=== PATIENT | female | born 1965 | race African-American/Black ===

== ENCOUNTER 2018-08-14 18:31 | Emergency (ER) | payer MEDICARE, MEDICAID ==
[2018-08-14] MEDS ORDERED: ASPIRIN 81 MG TABLET, CHEWABLE PO ONE (18:59)
--- NOTE | 2018-08-14 19:01 | ER Document Report ---
ED Medical Screen (RME) - General Chief Complaint: Chest Pain > 30 Stated Complaint: CHEST PAIN/EG PAIN/SHORTNESS OF BREATH Time Seen by Provider: 08/14/18 18:59 Notes: 52 years old female presents today with chest pain on and off for the last few days, left calf pain, difficulty in breathing on and off. 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 No previous history of any cardiac disease hypertension or diabetes. On examination reproducible chest wall tenderness noted. She insisted on ruling out any possibility of DVT. TRAVEL OUTSIDE OF THE [place] IN LAST 30 DAYS: No - Related Data Allergies/Adverse Reactions: codeine Allergy (Verified 08/14/18 18:36) erythromycin base Allergy (Verified 08/14/18 18:36) Sulfa (Sulfonamide Antibiotics) Allergy (Verified 08/14/18 18:36) Physical Exam - Vital signs Vitals: Temp Pulse Resp BP Pulse Ox 98.1 F 63 18 154/82 H 97 08/14/18 18:45 08/14/18 18:45 08/14/18 18:45 08/14/18 18:45 08/14/18 18:45 Course - Vital Signs Vital signs: Temp Pulse Resp BP Pulse Ox 98.1 F 63 18 154/82 H 97 08/14/18 18:45 08/14/18 18:45 08/14/18 18:45 08/14/18 18:45 08/14/18 18:45
[2018-08-14 19:29] LABS: ABSOLUTE BASOPHILS # (AUTO) 0.1 10^3/uL (0.0-0.2); ABSOLUTE EOSINOPHILS # (AUTO) 0.1 10^3/uL (0.0-0.6); ABSOLUTE LYMPHOCYTES (AUTO) 2.6 10^3/uL (0.5-4.7); ABSOLUTE MONOCYTES (AUTO) 0.5 10^3/uL (0.1-1.4); ABSOLUTE NEUT (AUTO) 3.7 10^3/uL (1.7-8.2); BASOPHILS % (AUTO) 0.9 % (0-2); EOSINOPHILS % (AUTO) 1.5 % (0-6); HEMATOCRIT 40.6 % (36.0-47.0); HEMOGLOBIN 13.4 g/dL (12.0-15.5); LYMPHOCYTES % (AUTO) 37.4 % (13-45); MEAN CORPUSCULAR HEMOGLOBIN 29.6 pg (27.0-33.4); MEAN CORPUSCULAR HGB CONC 33.1 g/dL (32.0-36.0); MEAN CORPUSCULAR VOLUME 89 fl (80-97); MONOCYTES % (AUTO) 6.9 % (3-13); PLATELET COUNT 240 10^3/uL (150-450); RED BLOOD COUNT 4.54 10^6/uL (3.72-5.28); RED CELL DISTRIBUTION WIDTH 14.1 % (11.5-14.0); SEGMENTED NEUTROPHILS % (AUTO) 53.3 % (42-78); TOTAL CELLS COUNTED % (AUTO) 100 %
--- NOTE | 2018-08-14 19:32 | EKG REPORT ---
SEVERITY:- ABNORMAL ECG - SINUS RHYTHM LATERAL INFARCT, OLD ABNRM R PROG, CONSIDER ASMI OR LEAD PLACEMENT : Confirmed by: Rick Acosta MD 14-Aug-2018 19:30:53
[2018-08-14 19:49] LABS: ALANINE AMINOTRANSFERASE 23 U/L (9-52); ALKALINE PHOSPHATASE 73 U/L (38-126); ANION GAP 9 (5-19); ASPARTATE AMINO TRANSFERASE 26 U/L (14-36); BILIRUBIN,DIRECT 0.1 mg/dL (0.0-0.4); BILIRUBIN,TOTAL 0.4 mg/dL (0.2-1.3); BLOOD UREA NITROGEN 13 mg/dL (7-20); CALCIUM 9.8 mg/dL (8.4-10.2); CARBON DIOXIDE 26 mmol/L (22-30); CHLORIDE 105 mmol/L (98-107); CREATINE KINASE 138 U/L (30-135); GLUCOSE 80 mg/dL (75-110); POTASSIUM 4.5 mmol/L (3.6-5.0); SODIUM 139.8 mmol/L (137-145); TOTAL PROTEIN 7.7 g/dL (6.3-8.2)
[2018-08-14 20:00] LABS: CREATINE KINASE MB 0.75 ng/mL (<4.55)
[2018-08-14 20:01] LABS: TROPONIN I < 0.012 ng/mL
--- NOTE | 2018-08-14 20:34 | RADIOLOGY REPORT (SQ) ---
EXAM DESCRIPTION: VENOUS UNILATERAL LOWER COMPLETED DATE/TIME: 08/14/2018 8:26 pm REASON FOR STUDY: Calf pain rule out DVT COMPARISON: None. TECHNIQUE: Dynamic and static garay scale and color images acquired of the left leg venous system. Se lected spectral images acquired with additional compression and augmentation maneuvers. The contralat eral common femoral vein and saphenofemoral junction were also imaged. Images stored on PACS. LIMITATIONS: None. FINDINGS: COMMON FEMORAL: Normal phasicity, compression and augmentation. No visualized echogenic ma terial on garay scale. No defects on color images. FEMORAL: Normal compression and augmentation. No visualized echogenic material on garay scale. No defe cts on color images. POPLITEAL: Normal compression, augmentation. No visualized echogenic material on garay scale. No defec ts on color images. CALF VESSELS: Normal compression, augmentation. No visualized echogenic material on garay scale. No de fects on color images. GSV and SSV: Normal compression, augmentation. No visualized echogenic material on garay scale. No def ects on color images. ANY DEEP VENOUS INSUFFICIENCY: Not evaluated. ANY EVIDENCE OF POPLITEAL CYST: No. OTHER: No other significant finding. CONTRALATERAL COMMON FEMORAL VEIN AND SAPHENOFEMORAL JUNCTION: Normal phasicity, compression and augmentation. No visualized echogenic material on garay scale. No de fects on color images. IMPRESSION: NO EVIDENCE DVT OR SVT IN THE LEFT LEG. TECHNICAL DOCUMENTATION: JOB ID: [id number] [employer]- All Rights Reserved Reading location - IP/workstation name: [email or web address]
--- NOTE | 2018-08-14 20:35 | ER Document Report ---
ED General - General Chief Complaint: Chest Pain > 30 Stated Complaint: CHEST PAIN/EG PAIN/SHORTNESS OF BREATH Time Seen by Provider: 08/14/18 18:59 Mode of Arrival: Ambulatory Information source: Patient Notes: This is a 52-year-old female with a history of asthma, fibromyalgia, seasonal allergies and chronic neck and back pain. Patient presents to the emergency room with chest wall pain, left lower extremity pain for the past few days. Patient states she feels like she is had sharp pain which is worse with movement. She also states that she gets short of breath. She denies any family history for blood clots. Her mother of congestive heart failure at the age of 55. Her father is alive and healthy. She has 3 brothers and 2 sisters all who are fine. Her medicines are albuterol, Zyrtec and Zantac. TRAVEL OUTSIDE OF THE [place] IN LAST 30 DAYS: No - HPI Onset: Yesterday Onset/Duration: Gradual Quality of pain: Sharp Severity: Moderate Pain Level: 3 Associated symptoms: Chest pain, Shortness of breath. denies: Nonproductive cough, Productive cough, Fever, Nausea Exacerbated by: Movement Relieved by: Remaining still Similar symptoms previously: Yes Recently seen / treated by doctor: Yes - Related Data Allergies/Adverse Reactions: codeine Allergy (Verified 08/14/18 18:36) erythromycin base Allergy (Verified 08/14/18 18:36) Sulfa (Sulfonamide Antibiotics) Allergy (Verified 08/14/18 18:36) Past Medical History - General Information source: Patient - Social History Smoking Status: Unknown if Ever Smoked Cigarette use (# per day): No Chew tobacco use (# tins/day): No Frequency of alcohol use: None Drug Abuse: None Lives with: Family Family History: None Patient has suicidal ideation: No Patient has homicidal ideation: No - Past Medical History Cardiac Medical History: Denies: Hx Coronary Artery Disease, Hx Hypertension Pulmonary Medical History: Reports: Hx Asthma EENT Medical History: Reports: None Neurological Medical History: Reports: Other - Fibromyalgia Endocrine Medical History: Reports: None Renal/ Medical History: Reports: None. Denies: Hx Peritoneal Dialysis Malignancy Medical History: Reports: None GI Medical History: Reports: Hx Gastroesophageal Reflux Disease Musculoskeletal Medical History: Reports Hx Arthritis, Reports Hx Fibromyalgia Skin Medical History: Reports None Psychiatric Medical History: Reports: None Traumatic Medical History: Reports: Hx Fractures, Other - History of left leg crush injury, sternal fracture, pelvic fracture status Infectious Medical History: Reports: None Past Surgical History: Reports: Hx Hysterectomy Review of Systems - Review of Systems Constitutional: denies: Chills, Fever EENT: No symptoms reported Cardiovascular: See HPI Respiratory: See HPI Gastrointestinal: No symptoms reported Genitourinary: No symptoms reported Female Genitourinary: No symptoms reported Musculoskeletal: See HPI Skin: No symptoms reported Hematologic/Lymphatic: No symptoms reported Neurological/Psychological: No symptoms reported Physical Exam - Vital signs Vitals: Temp Pulse Resp BP Pulse Ox 98.1 F 63 18 154/82 H 97 08/14/18 18:45 08/14/18 18:45 08/14/18 18:45 08/14/18 18:45 08/14/18 18:45 Notes: Physical exam: GENERAL: She is alert and oriented x3, no acute distress HEAD: Atraumatic, normocephalic. EYES: Pupils equal round and reactive to light, extraocular movements intact, sclera anicteric, conjunctiva are normal. ENT: TMs normal, nares patent, oropharynx clear without exudates. Moist mucous membranes. NECK: Normal range of motion, supple without obvious mass or JVD. LUNGS: Breath sounds clear to auscultation bilaterally and equal. No wheezes rales or rhonchi. Chest wall: Patient does have chest wall tenderness to palpation and she has pain when she moves her torso. HEART: Regular rate and rhythm without murmurs, rubs or gallops. ABDOMEN: Soft, normoactive bowel sounds. No tenderness to palpation. No guarding, no rebound. No masses appreciated. EXTREMITIES: Normal range of motion, no pitting or edema. No clubbing or cyanosis. NEUROLOGICAL: Cranial nerves II through XII grossly intact. Normal speech, moving all extremities. PSYCH: Normal mood, normal affect. SKIN: Warm, Dry, normal turgor, no rashes or lesions noted. Course - Vital Signs Vital signs: Temp Pulse Resp BP Pulse Ox 98.1 F 63 18 154/82 H 97 08/14/18 18:45 18 18:45 08/14/18 18:45 08/14/18 18:45 08/14/18 18:45 - Laboratory Result Diagrams: 08/14/18 19:17 08/14/18 19:17 Laboratory results interpreted by me: 08/14/18 08/14/18 19:17 19:17 RDW 14.1 H Creatine Kinase 138 H - Diagnostic Test Radiology reviewed: Image reviewed, Reports reviewed - CTA of the chest shows no dense of emboli. Lower extremity Doppler shows no DVT. - EKG Interpretation by Me Rhythm: Other - EKG shows sinus rhythm with a ventricular rate of 57, no acute ST-T wave changes Discharge - Discharge Clinical Impression: Chest wall pain, Lower extremity pain Condition: Stable Disposition: HOME, SELF-CARE Additional Instructions: As we discussed, the CT of the chest showed no evidence of blood clots in the lungs. The ultrasound to the lower extremity showed no evidence of blood clot. Your labs look quite good. Recommendations: Rest over the weekend, take Naprosyn for pain. Take tramadol for pain unrelieved by the Naprosyn. Take Skelaxin for the muscle relaxation. See the summary of those medicines below Skelaxin: This is a muscle relaxer and it will make you tired. You should not take this medicine when you are driving or at work. Take this medicine when you are home and you will not be leaving the house. Naproxen (this is the same thing is Naprosyn): This is an anti-inflammatory medicine and you can take this while you are at work and while you drive. This will not cause any sedation. Motrin: This is in the same family as naproxen. You should not take Motrin and naproxen at the same time. This will irritate your stomach and not offer any significant benefit. Take 1 or the other. 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 Take it if the naproxen is not working and your at home. Follow-up with your doctors as planned on Friday. Take a copy of today's labs with you when you go. Also bring a copy of the CT reports. Into the emergency room for worsening pain, shortness of breath or any concerns or getting worse. Prescriptions: Tramadol HCl 50 mg PO Q6HP PRN #20 tablet PRN Reason:
--- NOTE | 2018-08-14 21:20 | RADIOLOGY REPORT (SQ) ---
EXAM DESCRIPTION: CT CHEST ANGIOGRAPHY WITHOUT THEN WITH IV CONTRAST three-dimensional reconstructions. COMPLETED DATE/TME: 08/14/2018 20:28 CLINICAL HISTORY: 52 years, Female, CHEST PAIN All CT scanners at this facility use dose modulation, iterative reconstruction, and/or weight based dosing when appropriate to reduce radiation dose to as low as reasonably achievable (ALARA). Findings: Pulmonary arteries are well opacified. No significant filling defects in the pulmonary arterial tree to suggest acute pulmonary embolism. Aorta is within normal limits with no evidence for aneurysm or dissection. No significant mediastinal, hilar or axillary lymphadenopathy. No pleural or pericardial effusions. Visualized upper abdominal organs are within normal limits. Evaluation of the lung parenchyma demonstrates trachea and major airways to be patent. No suspicious lung nodules or masses. No consolidations. IMPRESSION: No acute disease. No acute pulmonary embolism.
[2018-08-14 22:37] VITALS: BP 149/91
== END 2018-08-14 22:37 | disposition home or self-care (01) ==
LOC: ER 18:31
DX: R07.89 Other chest pain (principal); M79.605 Pain in left leg; J45.909 Unspecified asthma, uncomplicated; R06.02 Shortness of breath; Z82.49 Family history of ischemic heart disease and other diseases of the circulatory system; Z79.899 Other long term (current) drug therapy; Z88.5 Allergy status to narcotic agent; Z88.1 Allergy status to other antibiotic agents; Z88.2 Allergy status to sulfonamides
CPT/HCPCS: 93005; 99285; 36415; 82553; 82550; 85025; 80053; 84484; 93971; 71275; 93010; A9270

== ENCOUNTER 2019-03-29 11:07 | Emergency (ER) | payer MEDICARE, MEDICAID ==
[2019-03-29] MEDS ORDERED: ASPIRIN 81 MG TABLET, CHEWABLE PO ONE (11:50)
--- NOTE | 2019-03-29 11:52 | ER Document Report ---
ED Medical Screen (RME) - General Chief Complaint: Chest Pain Stated Complaint: CHEST PAIN Time Seen by Provider: 03/29/19 11:46 Mode of Arrival: Ambulatory Information source: Patient Notes: Patient presents emergency department with complaints of right-sided chest pain right side up put back pain right arm pain that started this morning while she is at school. Reports recent treatment for UTI. Denies other symptoms such as nausea vomiting diarrhea. Denies history of cardiac disease. Right upper back is tender to palpate. Right upper quad is tender to palpate. I have greeted and performed a rapid initial assessment of this patient. A comprehensive ED assessment and evaluation of the patient, analysis of test results and completion of the medical decision making process will be conducted by additional ED providers. Dictation of this chart was performed using voice recognition software; therefore, there may be some unintended grammatical errors. TRAVEL OUTSIDE OF THE [place] IN LAST 30 DAYS: No - Related Data Allergies/Adverse Reactions: codeine Allergy (Verified 08/14/18 18:36) erythromycin base Allergy (Verified 08/14/18 18:36) Penicillins Allergy (Verified 03/29/19 11:07) Sulfa (Sulfonamide Antibiotics) Allergy (Verified 08/14/18 18:36) Past Medical History - Social History Chew tobacco use (# tins/day): No Frequency of alcohol use: None Drug Abuse: None - Past Medical History Cardiac Medical History: Denies: Hx Coronary Artery Disease, Hx Hypertension Pulmonary Medical History: Reports: Hx Asthma Renal/ Medical History: Denies: Hx Peritoneal Dialysis GI Medical History: Reports: Hx Gastroesophageal Reflux Disease Musculoskeltal Medical History: Reports Hx Arthritis, Reports Hx Fibromyalgia Traumatic Medical History: Reports: Hx Fractures Past Surgical History: Reports: Hx Hysterectomy Physical Exam - Vital signs Vitals: Temp Pulse Resp BP Pulse Ox 97.9 F 77 18 154/84 H 98 03/29/19 11:11 03/29/19 11:11 03/29/19 11:11 03/29/19 11:11 03/29/19 11:11 Course - Vital Signs Vital signs: Temp Pulse Resp BP Pulse Ox 97.9 F 77 18 154/84 H 98 03/29/19 11:11 03/29/19 11:11 03/29/19 11:11 03/29/19 11:11 03/29/19 11:11
[2019-03-29 12:41] LABS: APPEARANCE,URINE CLEAR; BILIRUBIN,URINE NEGATIVE (NEGATIVE); COLOR,URINE YELLOW; GLUCOSE, URINE NEGATIVE (NEGATIVE); KETONES,URINE NEGATIVE (NEGATIVE); LEUKOCYTE ESTERASE,URINE NEGATIVE (NEGATIVE); NITRITE,URINE NEGATIVE (NEGATIVE); PROTEIN,URINE NEGATIVE (NEGATIVE); URINE SPECIFIC GRAVITY 1.013; UROBILINOGEN,URINE NEGATIVE mg/dL (<2.0)
[2019-03-29 12:43] LABS: ABSOLUTE LYMPHOCYTES (AUTO) 2.2 10^3/uL (0.5-4.7); ABSOLUTE MONOCYTES (AUTO) 0.5 10^3/uL (0.1-1.4); ABSOLUTE NEUT (AUTO) 4.8 10^3/uL (1.7-8.2); BASOPHILS % (AUTO) 0.5 % (0-2); EOSINOPHILS % (AUTO) 0.5 % (0-6); HEMATOCRIT 43.1 % (36.0-47.0); HEMOGLOBIN 14.2 g/dL (12.0-15.5); LYMPHOCYTES % (AUTO) 29.2 % (13-45); MEAN CORPUSCULAR HEMOGLOBIN 29.2 pg (27.0-33.4); MEAN CORPUSCULAR HGB CONC 32.9 g/dL (32.0-36.0); MEAN CORPUSCULAR VOLUME 89 fl (80-97); PLATELET COUNT 242 10^3/uL (150-450); RED BLOOD COUNT 4.86 10^6/uL (3.72-5.28); SEGMENTED NEUTROPHILS % (AUTO) 63.8 % (42-78); TOTAL CELLS COUNTED % (AUTO) 100 %; WHITE BLOOD COUNT 7.6 10^3/uL (4.0-10.5)
[2019-03-29 12:57] LABS: ALANINE AMINOTRANSFERASE 30 U/L (9-52); ALBUMIN 4.4 g/dL (3.5-5.0); ALKALINE PHOSPHATASE 72 U/L (38-126); ANION GAP 9 (5-19); ASPARTATE AMINO TRANSFERASE 26 U/L (14-36); BILIRUBIN,DIRECT 0.2 mg/dL (0.0-0.4); BILIRUBIN,TOTAL 0.3 mg/dL (0.2-1.3); BLOOD UREA NITROGEN 12 mg/dL (7-20); CALCIUM 10.1 mg/dL (8.4-10.2); CARBON DIOXIDE 28 mmol/L (22-30); CHLORIDE 105 mmol/L (98-107); CREATINE KINASE 126 U/L (30-135); GLUCOSE 82 mg/dL (75-110); LIPASE 82.9 U/L (23-300); POTASSIUM 4.4 mmol/L (3.6-5.0); SODIUM 141.6 mmol/L (137-145); TOTAL PROTEIN 8.3 g/dL (6.3-8.2)
--- NOTE | 2019-03-29 13:12 | RADIOLOGY REPORT (SQ) ---
EXAM DESCRIPTION: U/S ABDOMEN LIMITED W/O DOP COMPLETED DATE/TIME: 03/29/2019 1:01 pm REASON FOR STUDY: ruq pain COMPARISON: None. TECHNIQUE: Dynamic and static grayscale images acquired of the abdomen and recorded on PACS. Arelio dion selected color Doppler and spectral images recorded. LIMITATIONS: None. FINDINGS: PANCREAS: No masses. Tail was not well seen. LIVER: No masses. Echotexture normal. LIVER VASCULATURE: Normal directional flow of the main portal vein and hepatic veins. GALLBLADDER: No stones. Normal wall thickness. No pericholecystic fluid. ULTRASOUND-DETECTED AHN'S SIGN: Negative. INTRAHEPATIC DUCTS AND COMMON DUCT: CBD and intrahepatic ducts normal caliber. No filling defects. INFERIOR VENA CAVA: Normal flow. AORTA: No aneurysm. RIGHT KIDNEY: Normal, 9.1 cm. Normal echogenicity. No solid or suspicious masses. No hydronephrosis. No calcifications. PERITONEAL AND RIGHT PLEURAL SPACE: No ascites or effusions. OTHER: No other significant findings. IMPRESSION: NORMAL RIGHT UPPER QUADRANT ULTRASOUND. TECHNICAL DOCUMENTATION: JOB ID: [id number]- All Rights Reserved Reading location - IP/workstation name: [email or web address]
--- NOTE | 2019-03-29 13:14 | RADIOLOGY REPORT (SQ) ---
EXAM DESCRIPTION: CHEST 2 VIEWS COMPLETED DATE/TIME: 03/29/2019 1:05 pm REASON FOR STUDY: chest pain, back pain COMPARISON: None. EXAM PARAMETERS: NUMBER OF VIEWS: two views TECHNIQUE: Digital Frontal and Lateral radiographic views of the chest acquired. RADIATION DOSE: NA LIMITATIONS: none FINDINGS: LUNGS AND PLEURA: No opacities, masses or pneumothorax. No pleural effusion. MEDIASTINUM AND HILAR STRUCTURES: No masses or contour abnormalities. HEART AND VASCULAR STRUCTURES: Heart normal size. No evidence for failure. BONES: No acute findings. HARDWARE: None in the chest. OTHER: No other significant finding. IMPRESSION: NO ACUTE RADIOGRAPHIC FINDING IN THE CHEST. TECHNICAL DOCUMENTATION: JOB ID: [id number] [employer]- All Rights Reserved Reading location - IP/workstation name: [email or web address]
--- NOTE | 2019-03-29 13:19 | EKG REPORT ---
SEVERITY:- NORMAL ECG - SINUS RHYTHM : Confirmed by: Rick Acosta MD 29-Mar-2019 13:18:53
--- NOTE | 2019-03-29 15:07 | ER Document Report ---
ED General - General Chief Complaint: Chest Pain Stated Complaint: CHEST PAIN Time Seen by Provider: 03/29/19 11:46 Primary Care Provider: SANKET PEARL PA-C [Primary Care Provider] - Follow up as needed ADRIÁN PERALTA MD [ACTIVE STAFF] - Follow up tomorrow (cardiology) Mode of Arrival: Ambulatory Notes: Patient is a 53-year-old female that presents to the emergency department for chief complaint of chest pain. Patient reports that she is been having some on and off abdominal pain with radiation to the back, but today she was at the bank, and started having right-sided chest pain, that radiated to her arm and back, and then over to the left side, that concerned her. She was not doing anything exertional. She had some mild nausea but no shortness of breath. She denies prior history of coronary disease, diabetes, hypertension, CHF, or family history of coronary disease . She states that her pain is improved at this time, she has some chronic chest wall pain from fibromyalgia, but the pain that brought her in her today has resolved. She has some mild nausea still and right upper quadrant discomfort. At the time it started she rated her pain as an 8 out of 10, but has since resolved. The patient also complains of vaginal irritation, stating that she is been treated recently for bacterial vaginosis and for yeast infection, but she states she still having some pain with intercourse, and states that she is "raw down there", she still having sexual intercourse and states it is worse with that. Denies any new discharge, denies any dysuria since being on antibiotics which she was started on Macrobid, that has caused some some nausea, but no vomiting. Past Medical History: Denies chronic medical conditions Past Surgical History: Hysterectomy Social History: Denies tobacco, alcohol or drug use. Family History: Reviewed and noncontributory for presenting illness Allergies: Reviewed, see documented allergy list. REVIEW OF SYSTEMS: Other than noted above, the 12 point review of systems was reviewed with the patient and were negative, all pertinent findings are included in the HPI. PHYSICAL EXAMINATION: Vital signs reviewed, nursing noted reviewed. GENERAL: Well-appearing, well-nourished and in no acute distress. HEAD: Atraumatic, normocephalic. EYES: Eyes appear normal, extraocular movements intact, sclera anicteric, conjunctiva are normal. ENT: nares patent, oropharynx clear without exudates. Moist mucous membranes. NECK: Normal range of motion, supple without lymphadenopathy LUNGS: Breath sounds clear to auscultation bilaterally and equal. No wheezes rales or rhonchi. There is bilateral chest wall tenderness with palpation, c hronic per patient. HEART: Regular rate and rhythm without murmurs ABDOMEN: Soft, nontender, normoactive bowel sounds. No rebound, guarding, or rigidity. No masses appreciated. EXTREMITIES: Nontender, good range of motion, no pitting or edema. NEUROLOGICAL: No focal neurological deficits. Moves all extremities spontaneously Motor and sensory grossly intact on exam. PSYCH: Patient appears mildly anxious, but in no acute distress and answering questions appropriately SKIN: Warm, Dry, normal turgor, no rashes or lesions noted on exposed skin TRAVEL OUTSIDE OF THE [place] IN LAST 30 DAYS: No - Related Data Allergies/Adverse Reactions: codeine Allergy (Verified 08/14/18 18:36) erythromycin base Allergy (Verified 08/14/18 18:36) Penicillins Allergy (Verified 03/29/19 11:07) Sulfa (Sulfonamide Antibiotics) Allergy (Verified 08/14/18 18:36) Past Medical History - General Information source: Patient - Social History Smoking Status: Never Smoker Chew tobacco use (# tins/day): No Frequency of alcohol use: None Drug Abuse: None Family History: None Patient has suicidal ideation: No Patient has homicidal ideation: No - Past Medical History Cardiac Medical History: Denies: Hx Coronary Artery Disease, Hx Hypertension Pulmonary Medical History: Reports: Hx Asthma Renal/ Medical History: Denies: Hx Peritoneal Dialysis GI Medical History: Reports: Hx Gastroesophageal Reflux Disease Musculoskeletal Medical History: Reports Hx Arthritis, Reports Hx Fibromyalgia Traumatic Medical History: Reports: Hx Fractures Past Surgical History: Reports: Hx Hysterectomy Physical Exam - Vital signs Vitals: Temp Pulse Resp BP Pulse Ox 97.9 F 77 18 154/84 H 98 03/29/19 11:11 03/29/19 11:11 03/29/19 11:11 03/29/19 11:11 03/29/19 11:11 Course - Re-evaluation Re-evalutation: Patient seen and examined vital signs reviewed. Laboratory data and/or imaging were ordered as appropriate for the patient's presenting symptoms and complaint, with consideration of any critical or life threatening conditions that may be associated with their obtained history and exam as noted above. Patient was treated with aspirin Results were reviewed when available and demonstrated negative troponins x2, nonischemic EKG, chest x-ray negative, blood work otherwise unremarkable, UA negative as well. Right upper quadrant ultrasound ordered in triage was negative for any acute process. The patient was re-evaluated and was stable Evaluation was most consistent with vaginitis, possible UTI, chest pain, nonspecific, advised follow-up with cardiology for stress testing, patient's heart score was less than 3, therefore feel the patient after 2- troponins can follow-up with outpatient testing and stress test, it sounds that she is having vaginitis as well, advised her to follow-up with [facility], and advised pelvic rest. Results were discussed with the patient at this point, after careful consideration I feel that that patient can be discharged from the emergency department, the patient was educated treatments and reasons to return to the emergency department based on their presumed diagnosis as noted above, they were advised to followup with a primary care physician in 2-3 days. Patient was agreeable to plan of care. *Note is created using voice recognition software and may contain spelling, syntax or grammatical errors. Laboratory 03/29/19 03/29/19 03/29/19 12:00 12:00 12:00 WBC 7.6 RBC 4.86 Hgb 14.2 Hct 43.1 MCV 89 MCH 29.2 MCHC 32.9 RDW 14.0 Plt Count 242 Seg Neutrophils % 63.8 Lymphocytes % 29.2 Monocytes % 6.0 Eosinophils % 0.5 Basophils % 0.5 Absolute Neutrophils 4.8 Absolute Lymphocytes 2.2 Absolute Monocytes 0.5 Absolute Eosinophils 0.0 Absolute Basophils 0.0 Sodium 141.6 Potassium 4.4 Chloride 105 Carbon Dioxide 28 Anion Gap 9 BUN 12 Creatinine 0.88 Est GFR ( Amer) > 60 Est GFR (Non-Af Amer) > 60 Glucose 82 Calcium 10.1 Total Bilirubin 0.3 Direct Bilirubin 0.2 Neonat Total Bilirubin Not Reportable Neonat Direct Bilirubin Not Reportable Neonat Indirect Bili Not Reportable AST 26 ALT 30 Alkaline Phosphatase 72 Creatine Kinase 126 Troponin I < 0.012 Total Protein 8.3 H Albumin 4.4 Lipase 82.9 Urine Color Urine Appearance Urine pH Ur Specific Miracle Urine Protein Urine Glucose (UA) Urine Ketones Urine Blood Urine Nitrite Urine Bilirubin Urine Urobilinogen Ur Leukocyte Esterase Urine WBC (Auto) Urine RBC (Auto) Urine Bacteria (Auto) Squamous Epi Cells Auto Urine Mucus (Auto) Urine Ascorbic Acid 03/29/19 03/29/19 12:00 15:43 WBC RBC Hgb Hct MCV MCH MCHC RDW Plt Count Seg Neutrophils % Lymphocytes % Monocytes % Eosinophils % Basophils % Absolute Neutrophils Absolute Lymphocytes Absolute Monocytes Absolute Eosinophils Absolute Basophils Sodium Potassium Chloride Carbon Dioxide Anion Gap BUN Creatinine Est GFR ( Amer) Est GFR (Non-Af Amer) Glucose Calcium Total Bilirubin Direct Bilirubin Neonat Total Bilirubin Neonat Direct Bilirubin Neonat Indirect Bili AST ALT Alkaline Phosphatase Creatine Kinase Troponin I < 0.012 Total Protein Albumin Lipase Urine Color YELLOW Urine Appearance CLEAR Urine pH 6.0 Ur Specific Miracle 1.013 Urine Protein NEGATIVE Urine Glucose (UA) NEGATIVE Urine Ketones NEGATIVE Urine Blood NEGATIVE Urine Nitrite NEGATIVE Urine Bilirubin NEGATIVE Urine Urobilinogen NEGATIVE Ur Leukocyte Esterase NEGATIVE Urine WBC (Auto) 0 Urine RBC (Auto) 1 Urine Bacteria (Auto) TRACE Squamous Epi Cells Auto 1 Urine Mucus (Auto) RARE Urine Ascorbic Acid NEGATIVE Chest X-Ray 03/29/19 11:51 IMPRESSION: NO ACUTE RADIOGRAPHIC FINDING IN THE CHEST. Abdomen Ultrasound 03/29/19 11:52 IMPRESSION: NORMAL RIGHT UPPER QUADRANT ULTRASOUND. - Vital Signs Vital signs: Temp Pulse Resp BP Pulse Ox 98.1 F 72 16 151/74 H 100 03/29/19 17:31 03/29/19 17:31 03/29/19 17:31 03/29/19 17:31 03/29/19 17:31 - Laboratory Result Diagrams: 03/29/19 12:00 03/29/19 12:00 Laboratory results interpreted by me: 03/29/19 12:00 Total Protein 8.3 H - EKG Interpretation by Me Additional EKG results interpreted by me: EKG demonstrates sinus rhythm with a ventricular rate of 69 bpm, normal axis, normal intervals, no evidence of acute ischemia in this EKG, no ST elevation. Compared with prior EKG from 08/14/2018, without significant change. Discharge - Discharge Clinical Impression: Vaginal irritation Chest pain Qualifiers: Chest pain type: unspecified Qualified Code(s): R07.9 - Chest pain, unspecified Condition: Stable Disposition: HOME, SELF-CARE Instructions: Chest Pain of Unclear Cause ([facility]), Vaginitis ([facility]) Additional Instructions: Please follow-up with cardiology, call for an appointment tomorrow to schedule a stress test. Please follow-up with the [facility] as well, advised pelvic rest, without intercourse for 1 to 2 weeks to avoid further irritation. Prescriptions: Phenazopyridine HCl [Pyridium 200 mg Tablet] 200 mg PO TID #15 tablet Referrals: SANKET PEARL PA-C [Primary Care Provider] - Follow up as needed ADRIÁN PERALTA MD [ACTIVE STAFF] - Follow up tomorrow (cardiology)
[2019-03-29 17:20] VITALS: BP 151/74
== END 2019-03-29 17:32 | disposition home or self-care (01) ==
LOC: ER 11:07
DX: R07.9 Chest pain, unspecified (principal); R10.2 Pelvic and perineal pain; N94.10 Unspecified dyspareunia; R11.0 Nausea; R10.11 Right upper quadrant pain; J45.909 Unspecified asthma, uncomplicated; Z88.6 Allergy status to analgesic agent; Z88.1 Allergy status to other antibiotic agents; Z88.0 Allergy status to penicillin; Z88.2 Allergy status to sulfonamides
CPT/HCPCS: 93005; 99284; 36415; 82550; 83690; 85025; 80053; 81001; 84484; 71046; 76705; 93010; A9270

== ENCOUNTER 2019-08-05 18:45 | Emergency (ER) | payer MEDICARE, MEDICAID ==
--- NOTE | 2019-08-05 19:04 | ER Document Report ---
ED Medical Screen (RME) - General Stated Complaint: FALL/LEFT RIB AND SIDE PAIN Time Seen by Provider: 08/05/19 19:00 Primary Care Provider: SANKET PEARL PA-C [Primary Care Provider] - Follow up as needed Mode of Arrival: Wheelchair Information source: Patient Notes: 53-year-old female presents emergency department with left-sided pain after she fell in the shower and hit her left-sided ribs left shoulder. Denies change in LOC. I have greeted and performed a rapid initial assessment of this patient. A comprehensive ED assessment and evaluation of the patient, analysis of test resu lts and completion of the medical decision making process will be conducted by additional ED providers. Dictation of this chart was performed using voice recognition software; therefore, there may be some unintended grammatical errors. TRAVEL OUTSIDE OF THE [place] IN LAST 30 DAYS: No - Related Data Allergies/Adverse Reactions: codeine Allergy (Verified 08/14/18 18:36) erythromycin base Allergy (Verified 08/14/18 18:36) Penicillins Allergy (Verified 03/29/19 11:07) Sulfa (Sulfonamide Antibiotics) Allergy (Verified 08/14/18 18:36) Past Medical History - Past Medical History Cardiac Medical History: Denies: Hx Coronary Artery Disease, Hx Hypertension Pulmonary Medical History: Reports: Hx Asthma Renal/ Medical History: Denies: Hx Peritoneal Dialysis GI Medical History: Reports: Hx Gastroesophageal Reflux Disease Musculoskeltal Medical History: Reports Hx Arthritis, Reports Hx Fibromyalgia Traumatic Medical History: Reports: Hx Fractures Past Surgical History: Reports: Hx Hysterectomy Doctor's Discharge - Discharge Referrals: SANKET PEARL PA-C [Primary Care Provider] - Follow up as needed
--- NOTE | 2019-08-05 19:42 | RADIOLOGY REPORT (SQ) ---
EXAM DESCRIPTION: SHOULDER LEFT 2 OR MORE VIEWS COMPLETED DATE/TIME: 08/05/2019 7:23 pm REASON FOR STUDY: FALL IN SHOWER, PAIN COMPARISON: None. NUMBER OF VIEWS: Three views. TECHNIQUE: Internal rotation, external rotation, and Y view images acquired of the left shoulder. LIMITATIONS: None. FINDINGS: MINERALIZATION: Normal. BONES: No acute fracture. No worrisome bone lesions. JOINTS: No dislocation. VISUALIZED LUNGS AND RIBS: No pneumothorax. No rib fracture. SOFT TISSUES: No radiopaque foreign body. OTHER: No other significant finding. IMPRESSION: NEGATIVE STUDY OF THE LEFT SHOULDER. NO RADIOGRAPHIC EVIDENCE OF ACUTE INJURY. TECHNICAL DOCUMENTATION: JOB ID: [id number] [employer]- All Rights Reserved Reading location - IP/workstation name: [email or web address]
--- NOTE | 2019-08-05 19:43 | RADIOLOGY REPORT (SQ) ---
EXAM DESCRIPTION: RIBS LEFT W/PA CHEST COMPLETED DATE/TIME: 08/05/2019 7:23 pm REASON FOR STUDY: FALL IN SHOWER, PAIN COMPARISON: None. TECHNIQUE: Frontal view of the chest and additional views of the left ribs acquired. NUMBER OF VIEWS: Four views LIMITATIONS: None. FINDINGS: FRONTAL CXR: No pneumothorax. No pleural effusion. No atelectasis or infiltrates. RIBS: No displaced rib fractures. No lytic or blastic bony lesions. OTHER: No other significant finding. IMPRESSION: NO PNEUMOTHORAX. NO DISPLACED RIB FRACTURES. COMMENT: SITE OF TRAUMA/COMPLAINT MARKED/STAMP COMPLETED: No TECHNICAL DOCUMENTATION: JOB ID: [id number] [employer]- All Rights Reserved Reading location - IP/workstation name: [email or web address]
--- NOTE | 2019-08-05 19:44 | RADIOLOGY REPORT (SQ) ---
EXAM DESCRIPTION: HIP LEFT AP/LATERAL COMPLETED DATE/TIME: 08/05/2019 7:23 pm REASON FOR STUDY: FALL PAIN COMPARISON: None. NUMBER OF VIEWS: Two views. TECHNIQUE: AP pelvis and additional frog-leg view of the left hip. LIMITATIONS: None. FINDINGS: MINERALIZATION: Normal. LEFT HIP: No fracture or dislocation. No worrisome bone lesions. RIGHT HIP: No fracture or dislocation. No worrisome bone lesions. PUBIS AND ISCHIUM: No fracture. PELVIS: No fracture. SACRUM: No fracture or dislocation. No worrisome bone lesions. LOWER LUMBAR SPINE: No fracture or dislocation. No worrisome bone lesions. No significant disc disea se. SOFT TISSUES: No findings. OTHER: No other significant finding. IMPRESSION: NEGATIVE STUDY OF THE LEFT HIP AND PELVIS. NO RADIOGRAPHIC EVIDENCE OF ACUTE INJURY. TECHNICAL DOCUMENTATION: JOB ID: [id number] [employer]- All Rights Reserved Reading location - IP/workstation name: [email or web address]
[2019-08-05] MEDS ORDERED: KETOROLAC TROMETHAMINE 60 MG/2 ML SDV IM ONE (21:00)
[2019-08-05] MEDS ORDERED: TRAMADOL HCL 50 MG TABLET PO ONE (21:00)
--- NOTE | 2019-08-05 21:06 | ER Document Report ---
ED General - General Chief Complaint: Rib Pain Stated Complaint: FALL/LEFT RIB AND SIDE PAIN Time Seen by Provider: 08/05/19 19:00 Primary Care Provider: SANKET PEARL PA-C [Primary Care Provider] - Follow up in 1 week Mode of Arrival: Wheelchair TRAVEL OUTSIDE OF THE [place] IN LAST 30 DAYS: No - HPI Notes: 53-year-old female to the emergency department with complaints of left shoulder left rib and left hip and left ankle pain that occurred just prior to arrival. She states that she was in the shower when she slipped on some soap and fell striking the left side of her body on the side of the tub. She denies any loss of consciousness. She denies any bladder or bowel incontinence. She denies any saddle paresthesia. She denies any radiculopathy. She states that she has not taken anything for the pain since she fell. - Related Data Allergies/Adverse Reactions: codeine Allergy (Verified 08/14/18 18:36) erythromycin base Allergy (Verified 08/14/18 18:36) Penicillins Allergy (Verified 03/29/19 11:07) Sulfa (Sulfonamide Antibiotics) Allergy (Verified 08/14/18 18:36) Past Medical History - General Information source: Patient - Social History Smoking Status: Never Smoker Chew tobacco use (# tins/day): No Frequency of alcohol use: None Drug Abuse: None Family History: None, Reviewed & Not Pertinent Patient has suicidal ideation: No Patient has homicidal ideation: No - Past Medical History Cardiac Medical History: Denies: Hx Coronary Artery Disease, Hx Hypertension Pulmonary Medical History: Reports: Hx Asthma Renal/ Medical History: Denies: Hx Peritoneal Dialysis GI Medical History: Reports: Hx Gastroesophageal Reflux Disease Musculoskeletal Medical History: Reports Hx Arthritis, Reports Hx Fibromyalgia Traumatic Medical History: Reports: Hx Fractures Past Surgical History: Reports: Hx Hysterectomy Review of Systems - Review of Systems Constitutional: denies: Chills, Fever EENT: No symptoms reported Cardiovascular: denies: Chest pain, Palpitations, Heart racing, Dyspnea, Syncope Respiratory: denies: Cough, Short of breath Gastrointestinal: denies: Abdominal pain, Diarrhea, Nausea, Vomiting Musculoskeletal: See HPI, Joint pain. denies: Neck pain Skin: No symptoms reported Neurological/Psychological: Headaches. denies: Lost consciousness, Numbness, Tingling -: Yes All other systems reviewed and negative Physical Exam - Vital signs Vitals: Temp Pulse Resp BP Pulse Ox 98.7 F 71 20 167/87 H 98 08/05/19 18:58 08/05/19 18:58 08/05/19 18:58 08/05/19 18:58 08/05/19 18:58 Interpretation: Normal - General General appearance: Appears well, Alert In distress: None - HEENT Head: Normocephalic, Atraumatic Eyes: Normal Pupils: PERRL Ears: Normal External canal: Normal Tympanic membrane: Normal Sinus: Normal Nasal: Normal Mouth/Lips: Normal Mucous membranes: Normal Pharynx: Normal. No: Potential airway comprom. Neck: Normal, Supple. No: Lymphadenopathy, Meningismus - Respiratory Respiratory status: No respiratory distress Chest status: Tender - there is mild TTP over the left lower ribs at the midaxillary line. there is no step off or deformity. Breath sounds: Normal. No: Rales, Rhonchi, Stridor, Wheezing Chest palpation: Normal - Cardiovascular Rhythm: Regular Heart sounds: Normal auscultation Murmur: No - Abdominal Inspection: Normal Distension: No distension Bowel sounds: Normal Tenderness: Nontender Organomegaly: No organomegaly - Back Back: Normal, CVA tenderness. No: Deformity/step-off, Vertebra tenderness - Extremities Shoulder: Tender - mild TTP over the left shoulder but there is no deformity, dislocation, or evidence of separation. She has FROM of BUE against resistance in flexion, extension, adduction, and abduction. pulses intact and equal throughout. Hip: Tender - + TTP over the left hip with no leg length discrepancy. there is no rotation of the leg. she has increased pain with flexion, but has FROM of BLE against resistance with 5/5 strength in flexion and extension. - Neurological Neuro grossly intact: Yes Cognition: Normal Orientation: AAOx4 [place] Coma Scale Eye Opening: Spontaneous Love Coma Scale Verbal: Oriented [place] Coma Scale Motor: Obeys Commands [place] Coma Scale Total: 15 Speech: Normal Motor strength normal: LUE, RUE, LLE, RLE Sensory: Normal - Psychological Associated symptoms: Normal affect, Normal mood - Skin Skin Temperature: Warm Skin Moisture: Dry Skin Color: Normal Course - Re-evaluation Re-evalutation: Ribs w/Chest X-Ray 08/05/19 19:02 IMPRESSION: NO PNEUMOTHORAX. NO DISPLACED RIB FRACTURES. Shoulder X-Ray 08/05/19 19:02 IMPRESSION: NEGATIVE STUDY OF THE LEFT SHOULDER. NO RADIOGRAPHIC EVIDENCE OF ACUTE INJURY. Hip X-Ray 08/05/19 19:06 IMPRESSION: NEGATIVE STUDY OF THE LEFT HIP AND PELVIS. NO RADIOGRAPHIC EVIDENCE OF ACUTE INJURY. - Vital Signs Vital signs: Temp Pulse Resp BP Pulse Ox 98.1 F 59 L 15 153/88 H 100 08/05/19 21:39 08/05/19 21:39 08/05/19 21:39 08/05/19 21:39 08/05/19 21:39 Discharge - Discharge Clinical Impression: Rib injury Fall Qualifiers: Encounter type: initial encounter Qualified Code(s): W19.XXXA - Unspecified fall, initial encounter Injury of left hip Qualifiers: Encounter type: initial encounter Qualified Code(s): S79.912A - Unspecified injury of left hip, initial encounter Left shoulder strain Qualifiers: Encounter type: initial encounter Qualified Code(s): S46.912A - Strain of unspecified muscle, fascia and tendon at shoulder and upper arm level, left arm, initial encounter Condition: Stable Disposition: HOME, SELF-CARE Instructions: Muscle Strain ([facility]), Rib Contusion ([facility]) Additional Instructions: FOLLOW UP WITH PRIMARY CARE IN ONE WEEK. TAKE MEDICINES PRESCRIBED. TAKE YOUR AT HOME TORADOL AND SKELAXIN. USE INCENTIVE SPIROMETER. ALTERNATE BETWEEN ICE AND HEAT. Prescriptions: Tramadol HCl [Ultram 50 mg Tablet] 50 mg PO Q6H PRN #10 tab PRN Reason: Forms: Return to School, Return to Work Referrals: SANKET PEARL PA-C [Primary Care Provider] - Follow up in 1 week
[2019-08-05 21:41] VITALS: BP 153/88
== END 2019-08-05 21:39 | disposition home or self-care (01) ==
LOC: ER 18:45
DX: S46.912A Strain of unspecified muscle, fascia and tendon at shoulder and upper arm level, left arm, initial encounter (principal); S29.9XXA Unspecified injury of thorax, initial encounter; S79.912A Unspecified injury of left hip, initial encounter; R07.81 Pleurodynia; M25.512 Pain in left shoulder; M25.552 Pain in left hip; M25.572 Pain in left ankle and joints of left foot; W01.0XXA Fall on same level from slipping, tripping and stumbling without subsequent striking against object, initial encounter; Y92.002 Bathroom of unspecified non-institutional (private) residence as the place of occurrence of the external cause; J45.909 Unspecified asthma, uncomplicated
CPT/HCPCS: 99283; 96372; 73502; 71101; 73030; J1885; A9270

== ENCOUNTER 2020-02-14 03:24 | Emergency (ER) | payer MEDICARE, MEDICAID ==
[2020-02-14] MEDS ORDERED: LIDOCAINE 2% VISCOUS SOLN 15 ML UDCUP PO ONE (03:58)
[2020-02-14] MEDS ORDERED: MAG HYDROX/AL HYDROX/SIMETH SUSP 30 ML UDCUP PO ONE (03:58)
[2020-02-14] MEDS ORDERED: METOCLOPRAMIDE HCL ORAL SOLN 10 MG/10 ML UDCUP PO ONE (03:58)
--- NOTE | 2020-02-14 04:00 | ER Document Report ---
ED General - General Chief Complaint: Chest Pain > 30 Stated Complaint: CHEST PAIN Time Seen by Provider: 02/14/20 03:50 Primary Care Provider: SANKET PEARL PA-C [Primary Care Provider] - Follow up as needed Notes: Patient is a 54-year-old female that comes emergency department for chief complaint of pain in her upper abdomen and into her chest. She states this woke her up in the middle the night, she states it felt like a sharp pain, then felt like it was burning, she felt nauseated, she states she belched and had a sour taste in her mouth. Pain did radiate into her back. She denies vomiting. She states that she has been having a lot of trouble with reflux, been placed on Carafate but it caused her to be constipated so she stopped this, she has a follow-up with gastroenterology for endoscopy tomorrow but felt so uncomfortable she came in for evaluation. She states she had a negative stress test [address] Lay trying to evaluate these same symptoms. She denies smoking, denies recent alcohol, denies recreational drugs. She reports past medical history of fibromyalgia, irritable bowel, GERD, partial hysterectomy, orthopedic surgery. TRAVEL OUTSIDE OF THE [place] IN LAST 30 DAYS: No - Related Data Allergies/Adverse Reactions: codeine Allergy (Verified 08/14/18 18:36) erythromycin base Allergy (Verified 08/14/18 18:36) Penicillins Allergy (Verified 03/29/19 11:07) Sulfa (Sulfonamide Antibiotics) Allergy (Verified 08/14/18 18:36) Past Medical History - General Information source: Patient - Social History Smoking Status: Never Smoker Chew tobacco use (# tins/day): No Frequency of alcohol use: Occasional Drug Abuse: None Lives with: Family Family History: None, Reviewed & Not Pertinent Patient has suicidal ideation: No Patient has homicidal ideation: No - Past Medical History Cardiac Medical History: Denies: Hx Coronary Artery Disease, Hx Hypertension Pulmonary Medical History: Reports: Hx Asthma Renal/ Medical History: Denies: Hx Peritoneal Dialysis GI Medical History: Reports: Hx Gastroesophageal Reflux Disease Musculoskeletal Medical History: Reports Hx Arthritis, Reports Hx Fibromyalgia Traumatic Medical History: Reports: Hx Fractures Past Surgical History: Reports: Hx Hysterectomy - Immunizations Immunizations up to date: Yes Hx Diphtheria, Pertussis, Tetanus Vaccination: Yes Review of Systems - Review of Systems Constitutional: No symptoms reported EENT: No symptoms reported Cardiovascular: See HPI Respiratory: No symptoms reported Gastrointestinal: See HPI Genitourinary: No symptoms reported Female Genitourinary: No symptoms reported Musculoskeletal: No symptoms reported Skin: No symptoms reported Hematologic/Lymphatic: No symptoms reported Neurological/Psychological: No symptoms reported Physical Exam - Vital signs Vitals: Temp Pulse Resp BP Pulse Ox 98.6 F 73 18 159/86 H 98 02/14/20 03:28 02/14/20 03:28 02/14/20 03:28 02/14/20 03:28 02/14/20 03:28 - Notes Notes: GENERAL: Alert, interacts well. No acute distress. Very talkative HEAD: Normocephalic, atraumatic. EYES: Pupils equal, round, and reactive to light. Extraocular movements intact. ENT: Oral mucosa moist, tongue midline. Oropharynx unremarkable. Airway patent. NECK: Full range of motion. Supple. Trachea midline. No lymphadenopathy. LUNGS: Clear to auscultation bilaterally, no wheezes, rales, or rhonchi. No respiratory distress. Non-tender chest wall. HEART: Regular rate and rhythm. No murmur ABDOMEN: There is mild epigastric tenderness, remaining abdomen completely benign. No rigidity, distention, or rebound tenderness. Bowel sounds present. GENITOURINARY: Deferred EXTREMITIES: Moves all 4 extremities spontaneously. No edema, normal radial and dorsalis pedis pulses bilaterally. No cyanosis. BACK: no cervical, thoracic, lumbar midline tenderness. No saddle anesthesia, normal distal neurovascular exam. Moves all extremities in full range of motion. NEUROLOGICAL: Alert and oriented x3. Normal speech. Cranial nerves II through XII grossly intact. Strength 5/5 in all extremities. PSYCH: Normal affect, normal mood. Patient in a very pleasant mood, very talkative SKIN: Warm, dry, normal turgor. No rashes or lesions noted. Course - Re-evaluation Re-evalutation: Patient is very talkative, very well-appearing, has mild epigastric tenderness, has a symptoms of very suggestive of upper gastrointestinal source of her symptoms. She was given GI cocktail and afterwards her symptoms completely resolved and patient fell asleep. Heart score is less than 3. CBC unremarkable, chemistry unremarkable, troponin is negative. EKG and chest x-ray unremarkable. Troponin cycled and negative. I discussed the patient. She used to be on Prilosec and Zantac, had these both stopped because of Zantac and did not resume the Prilosec, then she was placed on Carafate and Pepcid, she states that she felt nauseated and thought she was getting worse so she stopped both of these when she saw her provider again, she states currently she only takes Tums and Gas-X. Patient will be prescribed a PPI. Patient has endoscopy scheduled within 24 hours already, discussed return precautions in detail, patient states appreciation and agreement. Stable and well-appearing at time of discharge. - Vital Signs Vital signs: Temp Pulse Resp BP Pulse Ox 98.4 F 73 22 H 115/70 99 02/14/20 03:45 02/14/20 03:28 02/14/20 07:00 02/14/20 06:01 02/14/20 07:00 - Laboratory Result Diagrams: 02/14/20 03:49 02/14/20 03:49 Laboratory results interpreted by me: 02/14/20 02/14/20 03:49 03:49 RDW 14.2 H Chloride 108 H Anion Gap 4 L - EKG Interpretation by Me Additional EKG results interpreted by me: EKG shows sinus rhythm at a rate of 78, QTC of 411, normal axis, no T wave inversions or ST segment changes in consecutive leads. Machine reads as normal. Discharge - Discharge Clinical Impression: Upper abdominal pain Chest pain Qualifiers: Chest pain type: unspecified Qualified Code(s): R07.9 - Chest pain, unspecified GERD (gastroesophageal reflux disease) Qualifiers: Esophagitis presence: esophagitis presence not specified Qualified Code(s): K21.9 - Gastro-esophageal reflux disease without esophagitis Condition: Stable Disposition: HOME, SELF-CARE Additional Instructions: Your work-up does not show any concerning findings. Based on your symptoms and improvement with treatment I suspect that you have significant reflux disease and have had esophageal spasms. I recommend that you take the Protonix as prescribed. Avoid caffeine, smoking, alcohol, NSAIDs, spicy food. Start with clear fluids and bland diet. You can take Rolaids, Tums, etc. for symptoms if needed, you can take Tylenol if needed for pain. Please follow-up with your chemical analyst tomorrow for additional management. Return if you worsen including vomiting, severe worsening pain, fever, vomiting blood, black stools, or any other concerning or worsening symptoms. Prescriptions: Pantoprazole Sodium [Protonix] 40 mg PO DAILY #30 tablet. Ondansetron [Zofran Odt 4 mg Tablet] 1 - 2 tab PO Q4H PRN #15 tab.rapdis PRN Reason: For Nausea/Vomiting Referrals: SANKET PEARL PA-C [Primary Care Provider] - Follow up as needed
[2020-02-14 04:09] LABS: ABSOLUTE EOSINOPHILS # (AUTO) 0.1 10^3/uL (0.0-0.6); ABSOLUTE LYMPHOCYTES (AUTO) 2.2 10^3/uL (0.5-4.7); ABSOLUTE MONOCYTES (AUTO) 0.6 10^3/uL (0.1-1.4); ABSOLUTE NEUT (AUTO) 4.5 10^3/uL (1.7-8.2); BASOPHILS % (AUTO) 0.5 % (0-2); EOSINOPHILS % (AUTO) 0.8 % (0-6); HEMATOCRIT 40.6 % (36.0-47.0); HEMOGLOBIN 13.6 g/dL (12.0-15.5); LYMPHOCYTES % (AUTO) 29.4 % (13-45); MEAN CORPUSCULAR HEMOGLOBIN 29.9 pg (27.0-33.4); MEAN CORPUSCULAR HGB CONC 33.6 g/dL (32.0-36.0); MEAN CORPUSCULAR VOLUME 89 fl (80-97); MONOCYTES % (AUTO) 7.9 % (3-13); PLATELET COUNT 233 10^3/uL (150-450); RED BLOOD COUNT 4.57 10^6/uL (3.72-5.28); RED CELL DISTRIBUTION WIDTH 14.2 % (11.5-14.0); SEGMENTED NEUTROPHILS % (AUTO) 61.4 % (42-78); TOTAL CELLS COUNTED % (AUTO) 100 %; WHITE BLOOD COUNT 7.3 10^3/uL (4.0-10.5)
[2020-02-14 04:27] LABS: ALBUMIN 4.1 g/dL (3.5-5.0); ALKALINE PHOSPHATASE 66 U/L (38-126); ASPARTATE AMINO TRANSFERASE 25 U/L (14-36); BILIRUBIN,TOTAL 0.3 mg/dL (0.2-1.3); BLOOD UREA NITROGEN 11 mg/dL (7-20); CALCIUM 9.6 mg/dL (8.4-10.2); CARBON DIOXIDE 25 mmol/L (22-30); CHLORIDE 108 mmol/L (98-107); GLUCOSE 107 mg/dL (75-110); POTASSIUM 4.5 mmol/L (3.6-5.0); TOTAL PROTEIN 7.7 g/dL (6.3-8.2)
[2020-02-14 04:33] LABS: ANION GAP 4 (5-19)
--- NOTE | 2020-02-14 05:25 | RADIOLOGY REPORT (SQ) ---
CLINICAL HISTORY: chest pain COMPARISON: None. TECHNIQUE: XR CHEST 1 VIEW 02/14/2020 3:58 AM CDT FINDINGS: Cardiac silhouette is normal in size. Lungs are clear without consolidation, atelectasis, mass or edema. There is no pleural effusion. There is no pneumothorax. There are no acute osseous findings. IMPRESSION: Clear lungs.
[2020-02-14 08:15] VITALS: BP 119/70
--- NOTE | 2020-02-14 22:51 | EKG REPORT ---
SEVERITY:- NORMAL ECG - SINUS RHYTHM : Confirmed by: Karishma Lay 14-Feb-2020 22:50:53
== END 2020-02-14 08:17 | disposition home or self-care (01) ==
LOC: ER 03:24
DX: K21.9 Gastro-esophageal reflux disease without esophagitis (principal); R07.9 Chest pain, unspecified; R10.10 Upper abdominal pain, unspecified; R10.816 Epigastric abdominal tenderness; R11.0 Nausea; R14.2 Eructation; J45.909 Unspecified asthma, uncomplicated; Z87.19 Personal history of other diseases of the digestive system; Z88.6 Allergy status to analgesic agent; Z88.5 Allergy status to narcotic agent; Z88.1 Allergy status to other antibiotic agents; Z88.0 Allergy status to penicillin; Z88.2 Allergy status to sulfonamides; Z79.899 Other long term (current) drug therapy
CPT/HCPCS: 93005; 99285; 36415; 83690; 85025; 80053; 84484; 71045; 93010; J3490; A9270 ×2

== ENCOUNTER 2020-03-31 16:39 | Emergency (ER) | payer MEDICARE, MEDICAID ==
--- NOTE | 2020-03-31 19:00 | ER Document Report ---
ED Medical Screen (RME) - General Chief Complaint: Shoulder Pain Stated Complaint: SHOULDER AND BACK PAIN Time Seen by Provider: 03/31/20 18:59 Primary Care Provider: SANKET PEARL PA-C [Primary Care Provider] - Follow up as needed Mode of Arrival: Ambulatory Information source: Patient TRAVEL OUTSIDE OF THE [place] IN LAST 30 DAYS: No - HPI Patient complains to provider of: Left-sided shoulder back and jaw pain Onset: Yesterday Onset/Duration: Gradual Context: This a 54-year-old female states she is got left-sided shoulder pain with radiation down the left arm also to the left side of the front of her chest and her left jaw. I greeted and performed a rapid initial assessment of this patient. Comprehensive ED assessment and evaluation of the patient, analysis of test results and completion of the medical decision making process will be conducted by additional ED providers. Quality of pain: Achy, Cramping, Fullness, Pressure, Throbbing Pain Level: 3 - Related Data Allergies/Adverse Reactions: codeine Allergy (Verified 08/14/18 18:36) erythromycin base Allergy (Verified 08/14/18 18:36) Penicillins Allergy (Verified 03/29/19 11:07) Sulfa (Sulfonamide Antibiotics) Allergy (Verified 08/14/18 18:36) Past Medical History - Past Medical History Cardiac Medical History: Denies: Hx Coronary Artery Disease, Hx Hypertension Pulmonary Medical History: Reports: Hx Asthma Renal/ Medical History: Denies: Hx Peritoneal Dialysis GI Medical History: Reports: Hx Gastroesophageal Reflux Disease Musculoskeltal Medical History: Reports Hx Arthritis, Reports Hx Fibromyalgia Traumatic Medical History: Reports: Hx Fractures Past Surgical History: Reports: Hx Hysterectomy - Immunizations Immunizations up to date: Yes Hx Diphtheria, Pertussis, Tetanus Vaccination: Yes Physical Exam - Vital signs Vitals: Temp Pulse Resp BP Pulse Ox 98.6 F 86 16 153/96 H 97 03/31/20 16:57 03/31/20 16:57 03/31/20 16:57 03/31/20 16:57 03/31/20 16:57 Course - Vital Signs Vital signs: Temp Pulse Resp BP Pulse Ox 98.6 F 86 16 153/96 H 97 03/31/20 18:56 03/31/20 16:57 03/31/20 16:57 03/31/20 16:57 03/31/20 16:57 Doctor's Discharge - Discharge Referrals: SANKET PEARL PA-C [Primary Care Provider] - Follow up as needed
--- NOTE | 2020-03-31 19:25 | RADIOLOGY REPORT (SQ) ---
EXAM DESCRIPTION: CHEST SINGLE VIEW IMAGES COMPLETED DATE/TIME: 03/31/2020 7:16 pm REASON FOR STUDY: pain sp fall COMPARISON: 02/14/2020 EXAM PARAMETERS: NUMBER OF VIEWS: One view. TECHNIQUE: Single frontal radiographic view of the chest acquired. RADIATION DOSE: NA LIMITATIONS: None. FINDINGS: LUNGS AND PLEURA: The patient's tadeo overlie the apical regions obscuring detail slight ly. No acute pulmonary consolidation. No pneumothorax or pleural effusion. MEDIASTINUM AND HILAR STRUCTURES: No masses. Contour normal. HEART AND VASCULAR STRUCTURES: Heart normal in size. Normal vasculature. BONES: No acute findings. HARDWARE: None in the chest. OTHER: No other significant finding. IMPRESSION: 1. Examination is somewhat limited as above. No acute pulmonary findings. TECHNICAL DOCUMENTATION: JOB ID: [id number] 2010 [employer]- All Rights Reserved Reading location - IP/workstation name: [email or web address]
[2020-03-31 19:46] LABS: ABSOLUTE BASOPHILS # (AUTO) 0.1 10^3/uL (0.0-0.2); ABSOLUTE EOSINOPHILS # (AUTO) 0.1 10^3/uL (0.0-0.6); ABSOLUTE LYMPHOCYTES (AUTO) 2.3 10^3/uL (0.5-4.7); ABSOLUTE MONOCYTES (AUTO) 0.5 10^3/uL (0.1-1.4); ABSOLUTE NEUT (AUTO) 4.8 10^3/uL (1.7-8.2); BASOPHILS % (AUTO) 0.8 % (0-2); EOSINOPHILS % (AUTO) 1.2 % (0-6); HEMATOCRIT 41.9 % (36.0-47.0); HEMOGLOBIN 13.7 g/dL (12.0-15.5); LYMPHOCYTES % (AUTO) 29.4 % (13-45); MEAN CORPUSCULAR HEMOGLOBIN 29.2 pg (27.0-33.4); MEAN CORPUSCULAR HGB CONC 32.7 g/dL (32.0-36.0); MEAN CORPUSCULAR VOLUME 89 fl (80-97); MONOCYTES % (AUTO) 6.4 % (3-13); PLATELET COUNT 243 10^3/uL (150-450); RED BLOOD COUNT 4.69 10^6/uL (3.72-5.28); RED CELL DISTRIBUTION WIDTH 14.3 % (11.5-14.0); SEGMENTED NEUTROPHILS % (AUTO) 62.2 % (42-78); TOTAL CELLS COUNTED % (AUTO) 100 %; WHITE BLOOD COUNT 7.7 10^3/uL (4.0-10.5)
[2020-03-31 20:02] LABS: ALBUMIN 4.3 g/dL (3.5-5.0); ALKALINE PHOSPHATASE 73 U/L (38-126); ANION GAP 6 (5-19); ASPARTATE AMINO TRANSFERASE 25 U/L (14-36); BILIRUBIN,TOTAL 0.3 mg/dL (0.2-1.3); BLOOD UREA NITROGEN 9 mg/dL (7-20); CALCIUM 9.5 mg/dL (8.4-10.2); CARBON DIOXIDE 28 mmol/L (22-30); CHLORIDE 105 mmol/L (98-107); GLUCOSE 96 mg/dL (75-110); POTASSIUM 4.7 mmol/L (3.6-5.0); TOTAL PROTEIN 7.9 g/dL (6.3-8.2)
[2020-03-31] MEDS ORDERED: MAG HYDROX/AL HYDROX/SIMETH SUSP 30 ML UDCUP PO ONE (21:24)
[2020-03-31] MEDS ORDERED: TRAMADOL HCL 50 MG TABLET PO ONE (21:24)
[2020-03-31] MEDS ORDERED: CYCLOBENZAPRINE HCL 10 MG TABLET PO ONE (21:25)
[2020-03-31 21:51] VITALS: BP 157/81
--- NOTE | 2020-04-01 05:56 | ER Document Report ---
Entered by KARL BANG SCRIBE 03/31/20 2100 Acting as scribe for:RUPERTO MICHAELS IV, MD ED General - General Chief Complaint: Chest Pain Stated Complaint: SHOULDER AND BACK PAIN Time Seen by Provider: 03/31/20 18:59 Primary Care Provider: SANKET PEARL PA-C [Primary Care Provider] - Follow up as needed Mode of Arrival: Ambulatory Information source: Patient Notes: This 54 year old female patient with a history of fibromyalgia presents to the ED today with complaints of left shoulder pain that radiates to the back, left side of chest, and left jaw that started x3 days ago, worse today. Patient describes the pain as a sharp, burning sensation that is worse with deep breaths. She also notes a burning sensation to her LUE and bilateral lower extremities and numbness/tingling to digits 2-4 of her left hand. Patient notes that her fibromyalgia is exacerbated by cold environments and activity. 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 TRAVEL OUTSIDE OF THE [place] IN LAST 30 DAYS: No - Related Data Allergies/Adverse Reactions: codeine Allergy (Verified 08/14/18 18:36) erythromycin base Allergy (Verified 08/14/18 18:36) Penicillins Allergy (Verified 03/29/19 11:07) Sulfa (Sulfonamide Antibiotics) Allergy (Verified 08/14/18 18:36) Past Medical History - General Information source: Patient - Social History Smoking Status: Never Smoker Cigarette use (# per day): No Chew tobacco use (# tins/day): No Smoking Education Provided: No Frequency of alcohol use: None Drug Abuse: None Family History: Reviewed & Not Pertinent Patient has suicidal ideation: No Patient has homicidal ideation: No Pulmonary Medical History: Reports: Hx Asthma GI Medical History: Reports: Hx Gastroesophageal Reflux Disease Musculoskeletal Medical History: Reports Hx Arthritis, Reports Hx Fibromyalgia Traumatic Medical History: Reports: Hx Fractures Past Surgical History: Reports: Hx Hysterectomy, Hx Orthopedic Surgery - L leg - Immunizations Immunizations up to date: Yes Hx Diphtheria, Pertussis, Tetanus Vaccination: Yes Review of Systems - Review of Systems Constitutional: No symptoms reported EENT: Nose congestion, Other - Jaw pain Cardiovascular: See HPI, Chest pain - reproducible Respiratory: No symptoms reported Gastrointestinal: No symptoms reported Genitourinary: No symptoms reported Female Genitourinary: No symptoms reported Musculoskeletal: See HPI, Back pain, Joint pain - L shoulder, Muscle pain - LUE, Bilateral LE Skin: No symptoms reported Hematologic/Lymphatic: No symptoms reported Neurological/Psychological: See HPI, Numbness, Tingling -: Yes All other systems reviewed and negative Physical Exam - Vital signs Vitals: Temp Pulse Resp BP Pulse Ox 98.6 F 86 16 153/96 H 97 03/31/20 16:57 03/31/20 16:57 03/31/20 16:57 03/31/20 16:57 03/31/20 16:57 - General General appearance: Alert In distress: None - HEENT Head: Normocephalic, Atraumatic Eyes: Normal Pupils: PERRL - Respiratory Respiratory status: No respiratory distress Chest status: Nontender Breath sounds: Normal Chest palpation: Normal - Cardiovascular Rhythm: Regular Heart sounds: Normal auscultation Murmur: No Friction rub: No Gallop: None auscultated - Abdominal Inspection: Normal Distension: No distension Bowel sounds: Normal Tenderness: Nontender - Abdomen soft Organomegaly: No organomegaly - Back Back: Tender - Slight tenderness to palpation to the paraspinus and thoracic musculature on the right side - Extremities General upper extremity: Normal inspection General lower extremity: Normal inspection - Neurological Neuro grossly intact: Yes Orientation: AAOx4 - Psychological Associated symptoms: Normal affect, Normal mood - Skin Skin Temperature: Warm Skin Moisture: Dry Skin Color: Normal Course - Re-evaluation Re-evalutation: 03/31/20 21:25 Results of ED MSE discussed with patient. All questions were answered prior to discharge. Patient states she has taken tramadol and Flexeril in the past without adverse effect. Her description of symptoms seems most consistent with a flare of her fibromyalgia. Patient states that she did not take her Protonix today and is having heartburn and would like some Maalox before she is discharged. Emergency signs and symptoms, reasons to return to emergency department discussed with patient. - Vital Signs Vital signs: Temp Pulse Resp BP Pulse Ox 98.6 F 86 16 153/96 H 97 03/31/20 18:56 03/31/20 16:57 03/31/20 16:57 03/31/20 16:57 03/31/20 16:57 - Laboratory Result Diagrams: 03/31/20 19:27 03/31/20 19:27 Laboratory results interpreted by me: 03/31/20 19:27 RDW 14.3 H - Diagnostic Test Radiology reviewed: Reports reviewed - EKG Interpretation by Me Additional EKG results interpreted by me: 03/31/20 21:26 EKG obtained on 03/31/2020 at 1706 hrs. was interpreted by this MD findings: Normal sinus rhythm, rate 73, normal axis, P waves preceding QRS complexes, QRS complexes appear narrow, there are no obvious patterns of ST segment elevation or depression present to suggest acute myocardial ischemia or infarction. Impression: Normal sinus rhythm with nonspecific ST segments. Discharge - Discharge Clinical Impression: Fibromyalgia syndrome Disposition: HOME, SELF-CARE Additional Instructions: Fibromyalgia Fibromyalgia is a syndrome of pain, fatigue, and tissue tenderness. The cau se is unknown. All tests, including biopsy of tender tissues, are normal in fibromyalgia. Symptoms tend to worsen with stress. Fibromyalgia can persist for months or years. Antiinflammatory pain medicine such as ibuprofen can be helpful. Narcotics should be avoided. Medicine to help with abnormal sleep patterns and antidepressant medicine are very useful in most patients. Heat, massage, and e lectrical stimulation can reduce symptoms. It's important to exercise. Symptoms of fibromyalgia actually worsen with prolonged rest. Walking, swimming, or stationary biking are beneficial. You should see the doctor if pain becomes severe, or if you develop new symptoms such as joint swelling, rash, severe weakness, or shortness of breath. Return to the Emergency Department without delay if any worse. HOME CARE INSTRUCTIONS & INFORMATION: Thank you for choosing us for your medical needs. We hope you're satisfied with the care you received. After you leave, you must properly care for your problem and, at the same time, observe its progress. Any condition can change. Some illnesses can change rapidly over hours or days. If your condition worsens, return to the Emergency Department or see your physician promptly. ABOUT YOUR X-RAYS AND EKG'S: If you had an EKG or X-rays taken, they have been read by the Emergency Physician. The X-rays and EKG's will also be read by a R adiologist or Dictaphone Typist within 24 hours. If discrepancies are noted, you will be notified by telephone. Please be certain the ED has a correct telephone number & address where you can be reached. Also, realize that some fractures or abnormalities do not show up on initial X-rays. If your symptoms continue, see your physician. ABOUT YOUR LABORATORY TEST: If you had laboratory tests, the results have been reviewed by the Emergency Physician. Some test results (for example cultures) may not be available for several days. You will be contacted if any test result shows you need additional treatment. Please be certain the ED has a correct telephone number and address where you can be reached. ABOUT YOUR MEDICATIONS: You will receive instructions on how to take your medicine on the prescription label you receive. Additional information may be provided by the Pharmacy. If you have questions afterwards, call the ED for clarification or further instructions. Some prescribed medications may cause drowsiness. Do not perform tasks such as driving a car or operating machinery without consulting your Pharmacist. If you feel you need a refill of pain medication, your condition will need re-evaluation. Please do not call for a refill of any medication. ABOUT YOUR SIGNATURE: Signature of this document acknowledges to followin. Understanding that you received emergency treatment and that you may be released before al medical problems are known or treated. Please be certain the ED has a correct phone number & address where you can be reached. 2. Acknowledgement that you will arrange for follow-up care as recommended. 3. Authorization for the Emergency Physician to provide information to your follow-up Physician in order to maximize your care. AT ANY TIME, IF YOUR SYMPTOMS CHANGE SIGNIFICANTLY OR WORSEN OR YOU DEVELOP NEW SYMPTOMS, RETURN TO THE EMERGENCY DEPARTMENT IMMEDIATELY FOR RE-EVALUATION. OUR GOAL IS TO PROVIDE EXCELLENT MEDICAL CARE! WE HOPE THAT WE HAVE MET YOUR EXPECTATIONS DURING YOUR EMERGENCY DEPARTMENT VISIT AND THAT YOU FEEL YOU HAVE RECEIVED EXCELLENT CARE! Prescriptions: Tramadol HCl [Ultram 50 mg Tablet] 50 mg PO Q4HP PRN #20 tab PRN Reason: pain Cyclobenzaprine HCl [Flexeril 10 mg Tablet] 10 mg PO TIDP PRN #21 tab PRN Reason: muscle spasm Forms: Return to Work Referrals: SANKET PEARL PA-C [Primary Care Provider] - Follow up as needed I personally performed the services described in the documentation, reviewed and edited the documentation which was dictated to the scribe in my presence, and it accurately records my words and actions.
--- NOTE | 2020-04-01 20:52 | EKG REPORT ---
SEVERITY:- NORMAL ECG - SINUS RHYTHM : Confirmed by: Karishma Lay 01-Apr-2020 20:51:43
== END 2020-03-31 21:50 | disposition home or self-care (01) ==
LOC: ER 16:39
DX: M79.7 Fibromyalgia (principal); M25.512 Pain in left shoulder; R68.84 Jaw pain; M54.9 Dorsalgia, unspecified; Z88.6 Allergy status to analgesic agent; Z88.3 Allergy status to other anti-infective agents; Z88.0 Allergy status to penicillin; Z88.2 Allergy status to sulfonamides; Z90.710 Acquired absence of both cervix and uterus
CPT/HCPCS: 93005; 99284; 36415; 85025; 80053; 84484; 71045; 93010; A9270 ×3

== ENCOUNTER 2020-06-14 07:51 | Day surgery (SDC) | payer OTHER, MEDICARE, MEDICAID ==
[2020-06-14 08:36] LABS: INTERNATIONAL RATION (INR) 0.87
[2020-06-14 08:53] LABS: PARTIAL THROMBOPLASTIN TIME 27.2 SEC (23.5-35.8)
[2020-06-14 13:53] VITALS: BP 152/87
--- NOTE | 2020-06-14 14:27 | RADIOLOGY REPORT (SQ) ---
EXAM DESCRIPTION: CT CERVICAL SPINE WITH IMAGES COMPLETED DATE/TIME: 06/14/2020 11:05 am REASON FOR STUDY: RADICULOPATHY, CERVICAL REGION M54.12 RADICULOPATHY, CERVICAL REGION COMPARISON: None. TECHNIQUE: Axial images acquired through the cervical spine without intravenous contrast. Images re viewed with lung, soft tissue and bone windows. Reconstructed coronal and sagittal MPR images review ed. Images stored on PACS. All CT scanners at this facility use dose modulation, iterative reconstruction, and/or weight based d osing when appropriate to reduce radiation dose to as low as reasonably achievable (ALARA). [facility]: Dose Right [facility]: CareDose [facility]: Dose Right [facility]: Teradose 4D [facility]: Greenbox RADIATION DOSE: CT Rad equipment meets quality standard of care and radiation dose reduction techniq ues were employed. CTDIvol: 23.0 mGy. DLP: 607 mGy-cm. mGy. LIMITATIONS: None. FINDINGS: ALIGNMENT: Reversal of the normal lordotic curvature is likely positional. MINERALIZATION: Normal. VERTEBRAL BODIES: No fractures or dislocation. Small marginal osteophytes are seen at the mid cervic al levels. DISCS: C1-C2: No significant spinal stenosis or exit foraminal stenosis. C2-C3: No significant spinal stenosis or exit foraminal stenosis. C3-C4: No significant spinal stenosis or exit foraminal stenosis. C4-C5: No significant spinal stenosis or exit foraminal stenosis. C5-C6: No significant spinal stenosis or exit foraminal stenosis. C6-C7: No significant spinal stenosis or exit foraminal stenosis. C7-T1: No significant spinal stenosis or exit foraminal stenosis. FACETS, LATERAL MASSES, POSTERIOR ELEMENTS: No fractures. No dislocation. No acute findings. HARDWARE: None in the spine. VISUALIZED RIBS: No fractures. LUNG APICES AND SOFT TISSUES: No significant or acute findings. OTHER: No other significant finding. IMPRESSION: No evidence of significant spondylotic change or neural impingement. TECHNICAL DOCUMENTATION: JOB ID: [id number] Quality ID # [id number]: Final reports with documentation of one or more dose reduction techniques (e.g., Au tomated exposure control, adjustment of the mA and/or kV according to patient size, use of iterative reconstruction technique) 2010 [employer]- All Rights Reserved Reading location - IP/workstation name: [email or web address]
--- NOTE | 2020-06-14 15:02 | RADIOLOGY REPORT (SQ) ---
EXAM DESCRIPTION: MYELOGRAM CERVICAL IMAGES COMPLETED DATE/TIME: 06/14/2020 10:54 am REASON FOR STUDY: RADICULOPATHY, CERVICAL REGION M54.12 RADICULOPATHY, CERVICAL REGION COMPARISON: None. FLUOROSCOPY TIME: 0.9 minutes 7 images saved to PACS. TECHNIQUE: Fluoroscopic guided cervical myelogram. LIMITATIONS: None. PROCEDURE: After written consent and assessment were obtained, the patient was brought into the fluo roscopy room and placed prone on the table. The patient's lower back was prepped in a sterile fashio n and an entry site was selected under live fluoroscopic guidance. The entry site was anesthetized wi th 1% lidocaine. The spinal needle was advanced through the skin and into the thecal sac at the leve l of L4. Contrast was injected into the thecal sac. Following the procedure the needle was removed and a sterile bandage was placed of the site. CONTRAST: 8 mL Omnipaque 300. IMAGES ACQUIRED: 7 FINDINGS: Contrast is present in the thecal sac. IMPRESSION: CERVICAL MYELOGRAM PERFORMED FOR CT MYELOGRAPHY. PLEASE REFER TO THE REPORT OF THE CT M YELOGRAM FOR DETAILED DIAGNOSTIC EVALUATION. COMMENT: Patient medication list reviewed: Yes- Quality ID# [id number]:Eligible professional attests to doc umenting in the medical record they obtained, updated, or reviewed the patient's current medications. . Quality ID 145: Final reports for procedures using fluoroscopy that document radiation exposure ronnie manuel, or exposure time and number of fluorographic images (if radiation exposure indices are not avail able) TECHNICAL DOCUMENTATION: JOB ID: [id number] 2010 [employer]- All Rights Reserved Reading location - IP/workstation name: [email or web address]
== END 2020-06-14 13:00 | disposition home or self-care (01) ==
LOC: RAD 07:51
PROVIDERS: ATTEND Physician Assistant
DX: M54.12 Radiculopathy, cervical region (principal); E78.00 Pure hypercholesterolemia, unspecified; J45.909 Unspecified asthma, uncomplicated; M06.9 Rheumatoid arthritis, unspecified; Z88.5 Allergy status to narcotic agent; Z88.2 Allergy status to sulfonamides
CPT/HCPCS: 36415; 72126; 72240; 85610; 85730

== ENCOUNTER → 2020-09-07 | Outpatient (CLI) | payer MEDICARE, MEDICAID ==
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
== END ==
LOC: OD 12:44
PROVIDERS: ATTEND Otolaryngology
DX: J30.9 Allergic rhinitis, unspecified (principal)
CPT/HCPCS: 36415; 82785; 86003